=== PATIENT | female | born 1995 | race Two or more races ===

== ENCOUNTER 2017-10-20 00:44 | Inpatient (IN) ==
[2017-10-20 01:38] LABS: Baso # (Auto) 0.1 th/mm3 (0.0-0.2); Baso % (Auto) 0.4 % (0.0-2.0); Eos % (Auto) 0.1 % (0.0-4.0); Hematocrit 38.6 % (35.0-46.0); Hemoglobin 13.7 gm/dL (11.6-15.3); Lymph # (Auto) 1.7 th/mm3 (1.0-4.8); Lymph % (Auto) 12.2 % (9.0-44.0); Mean Corpuscular HGB Conc 35.5 % (32.0-36.0); Mean Corpuscular Hemoglobin 35.8 pg (27.0-34.0); Mean Corpuscular Volume 100.8 fL (80.0-100.0); Mean Platelet Volume 8.9 fL (7.0-11.0); Mono # (Auto) 0.6 th/mm3 (0.0-0.9); Mono % (Auto) 4.1 % (0.0-8.0); Neut # (Auto) 11.5 th/mm3 (1.8-7.7); Neut % (Auto) 83.2 % (16.0-70.0); Platelet Count 233 th/mm3 (150-450); Red Blood Count 3.83 mil/mm3 (4.00-5.30); Red Cell Distribution Width 13.1 % (11.6-17.2); White Blood Count 13.9 th/mm3 (4.0-11.0)
[2017-10-20] MEDS ORDERED: fentaNYL Citrate Inj 100 MCG/2 ML Ampul IV.PUSH PRN (01:42)
[2017-10-20] MEDS ORDERED: Sodium Chlor 0.9% Inj 500 ML IV.SIG PRN (01:42)
[2017-10-20] MEDS ORDERED: Sod Chloride 0.9% Inj 1,000 ML IV.CONT PRN (01:42)
[2017-10-20] MEDS ORDERED: Naloxone Inj 0.4 MG/ML Vial IV.PUSH PRN (01:42)
[2017-10-20] MEDS ORDERED: Oxytocin 30 Units/500ml Premix 30 UNITS/500 ML BAG IV.SIG ONE (01:42)
[2017-10-20] MEDS ORDERED: Citric Acid/Sodium Citrate Liq 30 ML UDC PO SCH (01:45)
[2017-10-20 01:54] LABS: Amphetamine Urine With Conf Neg (Neg); Benzodiazepine Urine With Conf Neg (Neg)
[2017-10-20 01:59] LABS: Bacteria,Urine Rare /hpf; Bilirubin,Urine Negative (Negative); Clarity,Urine Cloudy (Clear); Color,Urine Amber (Yellw/Straw); Glucose,Urine (UA) Negative (Negative); Leukocyte Esterase,Urine Negative (Negative); Mucus,Urine Many /lpf (Occasional); Nitrite,Urine Negative (Negative); Renal Epithelial Cells,Urine 1 /hpf; Specific Gravity,Urine 1.034 (1.002-1.035); Squamous Epithelial Cell,Urine 7 /hpf (0-5); Transitional Epi Cells,Urine 1 /hpf
[2017-10-20] MEDS: fentaNYL Citrate Inj 100 MCG/2 ML Ampul IV.PUSH PRN ×2 (02:03→04:40)
--- NOTE | 2017-10-20 04:45 | P.HPOB ---
History of Present Illness Primary Care Physician: UNKNOWN Chief Complaint: Term IUP with contractions and cervical change History of Present Illness: 22 yo at 40 1/7 weeks returns to [facility] this am with cervical change--now 3+ cm. No leaking, bleeding. GFM No symptoms pre eclampsia. PNC with Dr. Lewis No GDM, HT, PTL Weeks Gestation:: 40 Para: 0 : 1 - Inpatient Certification I certify that the inpatient services were ordered in accordance with Medicare regulations governing the order. This includes certification that hospital inpatient services are reasonable and necessary and in the case of services not specified as inpatient-only under 42 CFR 419.22(n), that they are appropriately provided as inpatient services in accordance to with the 2-midnight benchmark under 43 CFR 412.3(e) Estimated Total Length of Stay (Days): 3 Plans for Post Hospital Care: Home Review of Systems All other systems reviewed negative except as stated in HPI PMFSH - Tobacco History Smoking Status: Never smoker - Alcohol History How Often Do You Have a Drink Containing Alcohol: Never - Travel History History of Recent Travel: No Medications and Allergies Active Medications: Active Medications Citric Acid/Sodium Citrate (Sodium Citrate/Citric Acid Liq) 30 ml PO [facility] Stop: 10/24/17 01:44 Fentanyl Citrate (Fentanyl Inj) 50 mcg IV.PUSH Q1H PRN PRN Reason: Pain Scale 3 - 5 Fentanyl Citrate (Fentanyl Inj) 100 mcg IV.PUSH Q1H PRN PRN Reason: PAIN SCALE 6 TO 10 Last Admin: 10/20/17 02:03 Dose: 100 mcg Lactated Ringer's (Lr 1000 Ml Inj) 1,000 mls @ 125 mls/hr IV.CONT .Q8H [facility] Last Admin: 10/20/17 02:04 Dose: 125 mls/hr Lactated Ringer's (Lr 1000 Ml Inj) 1,000 mls @ 3,000 mls/hr IV.SIG UNSCH PRN PRN Reason: compromise or epidural Sodium Chloride (Ns Inj) 500 mls @ 1,000 mls/hr IV.SIG UNSCH PRN PRN Reason: SEE LABEL COMMENTS Sodium Chloride (Ns Inj) 1,000 mls @ 100 mls/hr IV.CONT .Q10H PRN PRN Reason: SEE LABEL COMMENTS Lidocaine HCl (Xylocaine 1% Inj) 0.1 ml I-DERMAL PRN PRN PRN Reason: For IV start Stop: 10/23/17 01:41 Lidocaine HCl (Xylocaine 1% Inj) 10 ml INFILTRATN PRN PRN PRN Reason: For episiotomy repair Stop: 10/22/17 01:41 Mineral Oil (Muri-Lube Oil) 10 ml TOPICAL PRN PRN PRN Reason: PRN perineal massage Naloxone HCl (Narcan Inj) 0.1 mg IV.PUSH Q2M PRN PRN Reason: for opiate reversal Ondansetron HCl (Zofran Inj) 4 mg IV.PUSH Q6H PRN PRN Reason: NAUSEA OR VOMITING Last Admin: 10/20/17 02:01 Dose: 4 mg Allergies Allergy/AdvReac Type Severity Reaction Status Date / Time No Known Allergies Allergy Verified 10/19/17 13:04 Home Medications Medication Instructions Recorded Confirmed Type vit,[id number] 1 tab PO DAILY 10/19/17 10/19/17 History [PNV 29-1] Exam Vital signs: Vital Signs 10/20/17 01:01 10/20/17 01:02 10/20/17 02:08 Temperature 98.5 F Pulse Rate 94 H 82 Respiratory Rate 18 18 Blood Pressure 126/61 121/56 L 10/20/17 03:15 10/20/17 04:16 10/20/17 04:17 Temperature Pulse Rate 74 Respiratory Rate 16 20 Blood Pressure 133/73 Intake & Output 10/19/17 10/19/17 10/20/17 06:59 18:59 06:59 Intake Total 1000 / 1000 Balance 1000 / 1000 Intake: IV 1000 / 1000 LR 1000 mL Inj 1,000 ML @ 125 1000 / 1000 mls/hr IV.CONT .Q8H [facility] Rx#: [id number] - Constitutional no acute distress (3 cm/90/-1 per RN) - Additional findings Additional findings: Term fundus vertex EFW 7 1/2 pounds pelvis clinically adequate per RN /-1 per RN Results - Labs CBC & Chem 7: 10/20/17 01:20 Labs: Laboratory Results - last 24 hr 10/20/17 10/20/17 10/20/17 01:00 01:00 01:20 WBC 13.9 H RBC 3.83 L Hgb 13.7 Hct 38.6 MCV 100.8 H MCH 35.8 H MCHC 35.5 RDW 13.1 Plt Count 233 MPV 8.9 Neut % (Auto) 83.2 H Lymph % (Auto) 12.2 Wells % (Auto) 4.1 Eos % (Auto) 0.1 Baso % (Auto) 0.4 Neut # (Auto) 11.5 H Lymph # (Auto) 1.7 Wells # (Auto) 0.6 Eos # (Auto) 0.0 Baso # (Auto) 0.1 WBC Differential . Differential Comment Auto diff final Urine Color Noemi Urine Clarity Cloudy H Urine pH 5.0 Ur Specific Sumrall 1.034 Urine Protein 100 H Urine Glucose (UA) Negative Urine Ketones 80 or greater Urine Occult Blood Moderate H Urine Nitrate Negative Urine Bilirubin Negative Urine Urobilinogen 2.0 H Ur Leukocyte Esterase Negative Urine RBC 2 Urine WBC 8 H Ur Squamous Epith Cells 7 Ur Transition Epith Cell 1 Ur Renal Epithelial Cell 1 Urine Bacteria Rare H Urine Mucus Many H Micro UA Comment Culture not ind Urine Culture Comments Culture not ind Urine Opiates Screen Neg Ur Barbiturates Screen Neg Ur Amphetamine Screen Neg U Benzodiazepines Scrn Neg Urine Cocaine Screen Neg U Cannabinoids Screen Pos H Blood Type 10/20/17 01:20 WBC RBC Hgb Hct MCV MCH MCHC RDW Plt Count MPV Neut % (Auto) Lymph % (Auto) Wells % (Auto) Eos % (Auto) Baso % (Auto) Neut # (Auto) Lymph # (Auto) Wells # (Auto) Eos # (Auto) Baso # (Auto) WBC Differential Differential Comment Urine Color Urine Clarity Urine pH Ur Specific Sumrall Urine Protein Urine Glucose (UA) Urine Ketones Urine Occult Blood Urine Nitrate Urine Bilirubin Urine Urobilinogen Ur Leukocyte Esterase Urine RBC Urine WBC Ur Squamous Epith Cells Ur Transition Epith Cell Ur Renal Epithelial Cell Urine Bacteria Urine Mucus Micro UA Comment Urine Culture Comments Urine Opiates Screen Ur Barbiturates Screen Ur Amphetamine Screen U Benzodiazepines Scrn Urine Cocaine Screen U Cannabinoids Screen Blood Type O Positive Caprini VTE Risk Assessment Caprini VTE Risk Assessment: No/Low Risk (score <= 1) Caprini Risk Assessment Model: Point Value = 1 Point Value = 2 Point Value = 3 Point Value = 5 Age 41-60 Minor surgery BMI > 25 kg/m2 Swollen legs Varicose veins or History of unexplained or recurrent spontaneous Oral contraceptives or hormone replacement Sepsis (< 1 month) Serious lung disease, including pneumonia (< 1 month) Abnormal pulmonary function Acute myocardial infarction Congestive heart failure (< 1 month) History of inflammatory bowel disease Medical patient at bed rest Age 61-74 Arthroscopic surgery Major open surgery (> 45 min) Laparoscopic surgery (> 45 min) Malignancy Confined to bed (> 72 hours) Immobilizing plaster cast Central venous access Age >= 75 History of VTE Family history of VTE Factor V Leiden Prothrombin [id number] Lupus anticoagulant Anticardiolipin antibodies Elevated serum homocysteine Heparin-induced thrombocytopenia Other congenital or acquired thrombophilia Stroke (< 1 month) Elective arthroplasty Hip, pelvis, or leg fracture Acute spinal cord injury (< 1 month) Prophylaxis Regimen: Total Risk Factor Score Risk Level Prophylaxis Regimen 0-1 Low Early ambulation 2 Moderate Order ONE of the following: *Sequential Compression Device (SCD) *Heparin 5000 units SQ BID 3-4 Higher Order ONE of the following medications: *Heparin 5000 units SQ TID *Enoxaparin/Lovenox 40 mg SQ daily (WT < 150 kg, CrCl > 30 mL/min) *Enoxaparin/Lovenox 30 mg SQ daily (WT < 150 kg, CrCl > 10-29 mL/min) *Enoxaparin/Lovenox 30 mg SQ BID (WT < 150 kg, CrCl > 30 mL/min) AND/OR *Sequential Compression Device (SCD) 5 or more Highest Order ONE of the following medications: *Heparin 5000 units SQ TID (Preferred with Epidurals) *Enoxaparin/Lovenox 40 mg SQ daily (WT < 150 kg, CrCl > 30 mL/min) *Enoxaparin/Lovenox 30 mg SQ daily (WT < 150 kg, CrCl > 10-29 mL/min) *Enoxaparin/Lovenox 30 mg SQ BID (WT < 150 kg, CrCl > 30 mL/min) AND *Sequential Compression Device (SCD) Assessment and Plan - Diagnosis (1) Uterine contractions Status: Acute (2) 40 weeks gestation of Code(s): Z3A.40 - 40 weeks gestation of Status: Acute - Plan admit in labor augment and epidural as indicated anticipate
[2017-10-20] MEDS ORDERED: Oxytocin 30 Units/500ml Premix 30 UNITS/500 ML BAG IV.CONT PRN (09:30)
[2017-10-20] MEDS ORDERED: fentaNYL 2MCG-Bupiv 0.125% Epi 150 ML EPIDURAL PRN ×2 (10:30→10:45)
[2017-10-20] MEDS ORDERED: fentaNYL Citrate Inj 100 MCG/2 ML Ampul EPIDURAL ONE (10:45)
[2017-10-20] MEDS ORDERED: Bupivacaine PF 0.25% Inj 10 ML Vial ONE (15:59)
--- NOTE | 2017-10-20 17:03 | P.OBDELI ---
Weeks Gestation: 40 Patient Started Active Labor: Yes Active Labor Start Date: 10/19/17 Medical Induction of Labor: No Artificial Rupture of Membrane: No Anesthesia: Epidural Episiotomy: none Vaginal Delivery: Normal Presentation: Occiput anterior Nuchal Cord: None Delayed Cord Clamping (45 sec): Yes Placenta: Spontaneous delivery, Intact, 3 vessel cord Laceration: Vaginal Repair: Vicryl running Infant: Male Female A Weight: 2.977 kg score (1 min): 9 score (5 min): 9 (Nice delivery of Roestes.. Cut thru the hymen and Nice controlled delivery. Had a small right labial laceration repaired with 5-0 vicryl.)
[2017-10-21] MEDS ORDERED: Bisacodyl 10 MG Supp RECTAL PRN (08:03)
[2017-10-21] MEDS ORDERED: Witch Hazel 50%/Glyderin 12.5% 40 Pad Jar RECTAL PRN (08:03)
[2017-10-21] MEDS ORDERED: Ibuprofen 400 MG Tablet PO PRN (08:03)
[2017-10-21] MEDS ORDERED: Naloxone Inj 0.4 MG/ML Vial IV.PUSH PRN (08:03)
[2017-10-21] MEDS ORDERED: Acetaminophen 325 MG Tablet PO PRN (08:03)
[2017-10-21] MEDS ORDERED: Zolpidem Tartrate 5 MG Tablet PO PRN (08:03)
[2017-10-21] MEDS ORDERED: Benzocaine 20% Top Spray 60 ML Can TOPICAL PRN (08:03)
[2017-10-21] MEDS ORDERED: Oxytocin 30 Units/500ml Premix 30 UNITS/500 ML BAG IV.CONT SCH (08:15)
[2017-10-21] MEDS ORDERED: Senna/Docusate Sodium 8.6/50 MG Tablet PO SCH (09:00)
--- NOTE | 2017-10-21 12:57 | P.PNOB ---
Subjective Post day: 1 Objective Vital Signs/I&O: Vital Signs 10/20/17 13:00 10/20/17 13:20 10/20/17 13:41 Temperature Pulse Rate 62 69 75 Respiratory Rate Blood Pressure 112/65 116/64 126/62 10/20/17 14:00 10/20/17 14:15 10/20/17 15:00 Temperature 98.5 F Pulse Rate 68 70 Respiratory Rate 20 Blood Pressure 112/61 118/65 10/20/17 15:21 10/20/17 15:41 10/20/17 16:09 Temperature Pulse Rate 81 79 63 Respiratory Rate 18 Blood Pressure 101/55 L 134/64 132/70 10/20/17 16:15 10/20/17 16:21 10/20/17 16:28 Temperature 98.7 F Pulse Rate 71 Respiratory Rate 18 Blood Pressure 122/59 L 10/20/17 16:55 10/20/17 17:00 10/20/17 17:20 Temperature Pulse Rate 80 79 67 Respiratory Rate Blood Pressure 97/44 L 105/64 113/80 10/20/17 17:41 10/20/17 17:45 10/20/17 18:01 Temperature 98.6 F Pulse Rate 62 72 Respiratory Rate Blood Pressure 111/61 111/58 L 10/20/17 20:30 10/21/17 08:00 Temperature 98.1 F 98.0 F Pulse Rate 77 80 Respiratory Rate 16 18 Blood Pressure 112/66 109/69 Intake & Output 10/20/17 10/21/17 10/21/17 18:59 06:59 18:59 Weight 143 kg Result Diagrams: 10/20/17 01:20 Objective Remarks: GENERAL: Well-nourished, well-developed patient. CARDIOVASCULAR: Regular rate and rhythm without murmurs, gallops, or rubs. RESPIRATORY: Breath sounds equal bilaterally. No accessory muscle use. ABDOMEN/GI: Abdomen soft, non-tender. Fundus: Firm, non-tender at umbilicus. GENITOURINARY: Light to moderate bleeding. EXTREMITIES: No cyanosis or edema, non-tender, without signs of DVT. Medications and IVs: Active Medications Acetaminophen (Tylenol) 650 mg PO Q4H PRN PRN Reason: PAIN SCALE 1 TO 2 Al Hydroxide/Mg Hydroxide (Milk Of Magnesia Liq) 30 ml PO Q12H PRN PRN Reason: Mild Constipation Benzocaine (Americaine 20% Top Prosperity) 1 spray TOPICAL Q4H PRN PRN Reason: For Perineum Discomfort Bisacodyl (Dulcolax Supp) 10 mg RECTAL DAILY PRN PRN Reason: SEVERE CONSITIPATION Diphtheria/Pertussis/Tetanus Vacc (Boostrix Vaccine Inj) 0.5 ml IM .ONCE ONE Stop: 10/21/17 16:01 Oxytocin (Pitocin 30 Units/Ns 500 Ml Premix) 30 units in 500 mls @ 2 mls/hr IV.CONT TITRATE PRN; Protocol PRN Reason: For induction of labor Last Admin: 10/20/17 10:21 Dose: 2 milliunit/min, 2 mls/hr Fentanyl/Bupivacaine/Sodium Chlor (Fentanyl 2 Mcg-Bupiv 0.125% Epi) 150 mls @ 10 mls/hr EPIDURAL UNSCH PRN PRN Reason: for Labor Pain Oxytocin (Pitocin 30 Units/Ns 500 Ml Premix) 30 units in 500 mls @ 100 mls/hr IV.CONT Q5H [facility] Stop: 10/21/17 13:14 Ibuprofen (Motrin) 800 mg PO Q8H PRN PRN Reason: CRAMPING Ibuprofen (Motrin) 800 mg PO Q8H PRN PRN Reason: For cramping Last Admin: 10/21/17 10:53 Dose: 800 mg Lactulose (Lactulose Liq) 30 ml PO DAILY PRN PRN Reason: SEVERE CONSITIPATION Measles/Mumps/Rubella Vaccine Live (M-M-R Ii Vaccine Inj) 0.5 ml SQ .ONCE ONE Stop: 10/21/17 16:01 Naloxone HCl (Narcan Inj) 0.1 mg IV.PUSH Q2M PRN PRN Reason: for opiate reversal Ondansetron HCl (Zofran Odt) 4 mg PO Q6H PRN PRN Reason: NAUSEA OR VOMITING Oxycodone/Acetaminophen (Percocet 5/325 Mg) 1 tab PO Q4H PRN PRN Reason: PAIN SCALE 6 TO 10 Rho Immune Globulin (Winrho Inj) 1,500 unit IM ONCE ONE Stop: 10/21/17 16:01 Senna/Docusate Sodium (Maria De Jesus-Colace) 1 tab PO BID [facility] Sennosides (Senokot) 17.2 mg PO Q12H PRN PRN Reason: Moderate Constipation Sodium Chloride (Ns Flush) 2 ml IV.FLUSH BID [place] Sodium Chloride (Ns Flush) 2 ml IV.FLUSH PRN PRN PRN Reason: FLUSH AFTER USING IV ACCESS Varicella Virus Vaccine Live (Varivax Vaccine Inj) 0.5 ml SQ .ONCE ONE Stop: 10/21/17 16:01 Witch Esmer/Glycerin (Tucks Pads) 1 applicatio RECTAL QID PRN PRN Reason: HEMORRHOIDS Zolpidem Tartrate (Ambien) 5 mg PO HS PRN PRN Reason: SLEEP Assessment and Plan - Plan pt doing well pain well managed with oral pain medication bonding with routine care Discharge Planning: dc home tomorrow
[2017-10-21] MEDS ORDERED: Varicella Vaccine Live 1350 UNITS/0.5 ML Vial SQ ONE (16:00)
[2017-10-21] MEDS ORDERED: Measles/Mumps/Rubella Vaccine Inj 0.5 ML Vial SQ ONE (16:00)
[2017-10-21] MEDS ORDERED: Rho Immune Globulin Inj 1,500 UNIT/1.3 ML Vial IM ONE (16:00)
[2017-10-21] MEDS ORDERED: Diphtheria/Tetanus/Pertussis Vaccine Inj 0.5 ML Syringe IM ONE (16:00)
[2017-10-21 21:13] VITALS: TEMP 98.1
--- NOTE | 2017-10-22 08:32 | P.PNOB ---
Subjective Post day: 2 Interval history: Doing swell Bleeding is good baby is good Ready to go home. Objective Vital Signs/I&O: Vital Signs 10/21/17 20:00 Temperature 98.1 F Pulse Rate 64 Respiratory Rate 18 Blood Pressure 107/60 Result Diagrams: 10/20/17 01:20 Objective Remarks: GENERAL: Well-nourished, well-developed patient. CARDIOVASCULAR: Regular rate and rhythm without murmurs, gallops, or rubs. RESPIRATORY: Breath sounds equal bilaterally. No accessory muscle use. ABDOMEN/GI: Abdomen soft, non-tender. Fundus: Firm, non-tender at umbilicus. GENITOURINARY: Light to moderate bleeding. EXTREMITIES: No cyanosis or edema, non-tender, without signs of DVT. Medications and IVs: Active Medications Acetaminophen (Tylenol) 650 mg PO Q4H PRN PRN Reason: PAIN SCALE 1 TO 2 Al Hydroxide/Mg Hydroxide (Milk Of Magnesia Liq) 30 ml PO Q12H PRN PRN Reason: Mild Constipation Benzocaine (Americaine 20% Top [place]) 1 spray TOPICAL Q4H PRN PRN Reason: For Perineum Discomfort Bisacodyl (Dulcolax Supp) 10 mg RECTAL DAILY PRN PRN Reason: SEVERE CONSITIPATION Oxytocin (Pitocin 30 Units/Ns 500 Ml Premix) 30 units in 500 mls @ 2 mls/hr IV.CONT TITRATE PRN; Protocol PRN Reason: For induction of labor Last Admin: 10/20/17 10:21 Dose: 2 milliunit/min, 2 mls/hr Fentanyl/Bupivacaine/Sodium Chlor (Fentanyl 2 Mcg-Bupiv 0.125% Epi) 150 mls @ 10 mls/hr EPIDURAL UNSCH PRN PRN Reason: for Labor Pain Ibuprofen (Motrin) 800 mg PO Q8H PRN PRN Reason: CRAMPING Last Admin: 10/21/17 23:22 Dose: 800 mg Ibuprofen (Motrin) 800 mg PO Q8H PRN PRN Reason: For cramping Last Admin: 10/21/17 10:53 Dose: 800 mg Lactulose (Lactulose Liq) 30 ml PO DAILY PRN PRN Reason: SEVERE CONSITIPATION Naloxone HCl (Narcan Inj) 0.1 mg IV.PUSH Q2M PRN PRN Reason: for opiate reversal Ondansetron HCl (Zofran Odt) 4 mg PO Q6H PRN PRN Reason: NAUSEA OR VOMITING Oxycodone/Acetaminophen (Percocet 5/325 Mg) 1 tab PO Q4H PRN PRN Reason: PAIN SCALE 6 TO 10 Last Admin: 10/21/17 23:21 Dose: 1 tab Senna/Docusate Sodium (Maria De Jesus-Colace) 1 tab PO BID [facility] Sennosides (Senokot) 17.2 mg PO Q12H PRN PRN Reason: Moderate Constipation Sodium Chloride (Ns Flush) 2 ml IV.FLUSH BID [place] Sodium Chloride (Ns Flush) 2 ml IV.FLUSH PRN PRN PRN Reason: FLUSH AFTER USING IV ACCESS Witch Esmer/Glycerin (Tucks Pads) 1 applicatio RECTAL QID PRN PRN Reason: HEMORRHOIDS Zolpidem Tartrate (Ambien) 5 mg PO HS PRN PRN Reason: SLEEP Assessment and Plan - Plan PPD #2 pt doing well pain well managed with oral pain medication bonding with infant routine snf today. Discharge Planning: dc home tomorrow
[2017-10-22 09:44] VITALS: BP 109/63; PULSE 74; RESP 20
--- NOTE | 2017-10-22 13:18 | P.DS ---
Date of admission: 10/20/17 01:10 Primary care physician: UNKNOWN Brief History from admission: 22 yo at 40 1/7 weeks returns to [facility] this am with cervical change--now 3+ cm. No leaking, bleeding. GFM No symptoms pre eclampsia. PNC with Dr. Lewis No GDM, HT, PTL DS: Diagnosis - Discharge Diagnosis (1) (normal spontaneous vaginal delivery) Status: Acute DS: Medications - Discharge Medications Prescriptions: ibuprofen 800 mg PO Q8H PRN #30 tab PRN Reason: CRAMPING oxycodone-acetaminophen 1 tab PO Q4H PRN #10 tab PRN Reason: moderate pain DS: Summary Hospital Course: term labor routine care - Time Spent with Patient Total time spent providing and/or coordinating discharge services: Less than 30 minutes Exam Vital signs: Vital Signs 10/21/17 20:00 10/22/17 08:50 Temperature 98.1 F 98.1 F Pulse Rate 64 74 Respiratory Rate 18 20 Blood Pressure 107/60 109/63 Narrative: see pp note Results Procedures completed during hospitalization: Discharge Plan - Discharge Disposition Patient Disposition: Discharge Home - Discharge Condition Condition: Good - Discharge Order Discharge Orders: Discharge Order (Routine); Ordered 10/22/17 Ordered By: Alicia Harding - Discharge Details Anticipated Discharge Date: 10/22/17 - Physicians Team Primary Care Provider: UNKNOWN, Attending Provider: Fady Lewis
== END 2017-10-22 16:45 | disposition home or self-care (01) ==
LOC: HOBED 00:44 → H2E 01:10 → H1EA 18:37
PROVIDERS: ADMIT Obstetrics & Gynecology; ATTEND Obstetrics & Gynecology